=== PATIENT | female | born 1955 | race Caucasian/White ===

== ENCOUNTER → 2016-08-02 | Outpatient (CLI) | payer OTHER ==
[~2016-08-02] MED LIST: ALBUTEROL2.5 MG/31 INH; ANCEF, KEFZOL1 GM IV; ASPIRIN LO-DOSE81 MG PO; AUGMENTIN 500-1 EACH PO; BACTRIM DS1 TAB; CELEXA20 MG PO; COLACE100 MG PO; DESYREL100 MG PO; FISH OIL 1,0001 EAC1 PO; FLONASE 50 MCG/16 GM NOSE; GLUCOPHAGE500 MG PO; HUMALOG100 UNIT/3 SUB-Q; HUMULIN 70100 UNIT/M; INVOKANA100 MG; KEFLEX500 MG; KEFLEX500 MG PO; LEVAQUIN750 MG PO; LEVEMIR FL100 UNIT/1 SUB-Q; LOPID600 MG PO; LOPRESSOR25 MG PO; MIRALAX17 GM PO; NEURONTIN600 MG PO; NITROSTAT0.4 MG SL; NORCO 10-325 T1 EACH PO; NORVASC5 MG PO; PLAVIX75 MG; PROBENECID PO; SOMA350 MG PO; VASOTEC5 MG PO
[2016-08-02 16:16] LABS: CREATININE 0.8 mg/dL (0.5-1.1); ESTIMATED GFR (MDRD EQUATION) > 60
== END | disposition disaster alternative care site (69) ==
LOC: GLAB 15:17 → GRAD 16:00
PROVIDERS: Physician Assistant
DX: R06.02 Shortness of breath (principal); I25.10 Atherosclerotic heart disease of native coronary artery without angina pectoris; J47.9 Bronchiectasis, uncomplicated; R91.8 Other nonspecific abnormal finding of lung field; R06.00 Dyspnea, unspecified
CPT/HCPCS: Q9967

== ENCOUNTER 2016-08-26 12:07 | Emergency (ER) | payer OTHER ==
--- NOTE | ~2016-08-26 | ER ---
PATIENT'S NAME: VIRGINIA PEREZ [facility] AGE: 61 Y [address] ROOM: [place] [address] LOCATION: [facility] ADMIT DATE: 08/26/2016 ER/Outpatient Report DISCHARGE DATE: 08/26/2016 FAMILY PHYSICIAN: Juliet Beckman MD ATTENDING PHYSICIAN: Fer Castillo CHIEF COMPLAINT: Foot ulcer and fevers. HISTORY OF PRESENT ILLNESS: Ms. Perez has a history of diabetic foot ulcer. She has been following with Dr. Crespo, soil conservation teacher in [place]. On Friday, she had significant cellulitis. She was supposed to be scheduled to receive IV infusion therapy at the [facility] here with vancomycin twice daily. There were some issues between the patient and the [facility] that precluded that. She states she had a fever of 100.6 and 99.6 on Friday and Friday respectively, but has otherwise been doing okay. She denies any other major issues at this time. No other acute findings, and she states her foot ulcer is about the same. PAST MEDICAL HISTORY: Documented on the record and reviewed by me. SOCIAL HISTORY: Documented on the record and reviewed by me. ALLERGIES: DOCUMENTED ON THE RECORD AND REVIEWED BY ME. REVIEW OF SYSTEMS: All systems were reviewed and negative except as noted in the HPI. PHYSICAL EXAMINATION: VITAL SIGNS: Blood pressure 122/61, pulse 74, respiratory rate 16, temperature 96.9, SpO2 is 94% on room air. Pain is currently 0/10, max is 8/10. GENERAL: Age-appropriate female. No obvious pain or distress, sitting upright on exam table. HEENT: Normocephalic and atraumatic. Eyes are PERRL. Oropharynx clear. NECK: Supple. Trachea is midline. NEUROLOGIC: Awake and alert. GCS 15. No focal deficits. No obvious asymmetry. Diminished foot sensation. Otherwise normal exam neurologically. CHEST: Heart is regular rate and rhythm. No murmurs. LUNGS: Grossly clear to auscultation bilaterally. ABDOMEN: Soft and nontender. BACK: Back is normal to inspection and palpation. PATIENT'S NAME: VIRGINIA PEREZ [facility] AGE: 61 Y [address] ROOM: [place] [address] LOCATION: [facility] ADMIT DATE: 08/26/2016 ER/Outpatient Report DISCHARGE DATE: 08/26/2016 FAMILY PHYSICIAN: Juliet Beckman MD ATTENDING PHYSICIAN: Fer Castillo EXTREMITIES: Warm and well perfused. The left foot is notable for a bed blister, which appears to be well healing on the medial aspect of the first MTP. The plantar aspect reveals a 7-mm ulceration with surrounding induration but no cellulitis. The patient has full active and passive range of motion of the ankle at baseline. No exposed muscle or tendon appreciated. SKIN: Otherwise clean, dry, and intact. LABORATORY DATA AND X-RAYS: No imaging was obtained. Labs are as follows: Procalcitonin below threshold. CMS without electrolyte abnormality. Renal function: Creatinine 0.7. GFR is greater than 60. No LFT abnormalities. CRP 6.82. CBC: White count is 9.2, hemoglobin is 12.7, and platelets of 279. Lactate is 1.3. IMPRESSION: Diabetic foot ulcer with likely osteomyelitis. EMERGENCY DEPARTMENT COURSE: The patient seen evaluated as above. No evidence of systemic sepsis or cellulitis at this time. Per Dr. Crespo's recommendation, she was given a dose of vancomycin here. I discussed the case with Pharmacy, and they felt she would not receive adequate coverage with vancomycin unless she had twice daily treatments. This would be ideal; however, the patient is trying to leave this weekend and is not desiring to go to the Cancer [facility] twice a day as this would cause her what she perceives to be undue stress. Based on this situation, the patient was given orders for daptomycin to be administered once daily 650 mg until she can be seen by the [facility] on . My prescription will go through . This will require her to have a single IV each day. She needs to keep those followup appointments as it is imperative to prevent spreading of her infection. All questions were answered, and the patient was discharged in good condition after receiving vancomycin. MD ALLY MILES/ramonel /[id number] d: 08/27/16 0148 t: 05/24/17 1012, OUTPATIENT REPORT
[~2016-08-26 12:07] MED LIST changes: -ANCEF, KEFZOL1 GM IV; -AUGMENTIN 500-1 EACH PO; -BACTRIM DS1 TAB; -COLACE100 MG PO; -FISH OIL 1,0001 EAC1 PO; -GLUCOPHAGE500 MG PO; -HUMALOG100 UNIT/3 SUB-Q; -KEFLEX500 MG; -KEFLEX500 MG PO; -LEVEMIR FL100 UNIT/1 SUB-Q; -MIRALAX17 GM PO; -PROBENECID PO; -SOMA350 MG PO
[2016-08-26 13:20] LABS: BASOPHIL % 0.3 %; EOSINOPHIL # 0.2 K/uL (0.0-0.5); EOSINOPHIL % 2.5 %; HEMOGLOBIN 12.7 g/dL (10.0-15.0); IMMATURE GRANULOCYTE % 0.3 %; LYMPHOCYTE # 3.2 K/uL (0.8-4.0); LYMPHOCYTE % 34.6 %; MCH 32.1 pg (27.0-34.0); MCHC 34.3 gm/dL (32.0-36.5); MCV 93.4 fl (83.0-98.0); MONOCYTE # 0.9 K/uL (0.0-1.0); MONOCYTE % 9.2 %; MPV 10.4 fl (9.4-12.4); NEUTROPHIL # (ANC) 4.9 K/uL (1.8-7.8); NEUTROPHIL % 53.1 %; NRBC % 0 /100WBC (0-0.00); RBC 3.96 M/uL (3.50-5.50); RDW-CV 12.9 % (11.9-14.6); WBC 9.2 K/uL (4.0-11.0)
[2016-08-26 13:22] LABS: PLATELET COUNT 279 K/uL (150-450)
[2016-08-26 13:37] LABS: ALBUMIN 3.6 gm/dL (3.5-5.0); ALK PHOS 62 IU/L (33-138); ALT 40 IU/L (12-78); ANION GAP 12.7 (10.0-19.0); AST 25 IU/L (10-40); BLOOD UREA NITROGEN 12 mg/dL (6-24); CALCIUM 8.6 mg/dL (8.5-10.5); CHLORIDE 106 mMol/L (96-110); CO2 26 mMol/L (22-32); CREATININE 0.7 mg/dL (0.5-1.1); ESTIMATED GFR (MDRD EQUATION) > 60; POTASSIUM 3.7 mMol/L (3.7-5.1); SODIUM 141 mMol/L (135-145); TOTAL PROTEIN 6.8 g/dL (6.0-8.4)
[2016-08-26 13:38] LABS: TOTAL BILIRUBIN 0.3 mg/dL (0.0-1.5)
[2016-09-17] MEDS ORDERED: HUMALOG100 UNIT/3 SUB-Q (15:55)
[2016-09-17] MEDS ORDERED: FISH OIL 1,0001 EAC1 PO (15:56)
[2016-09-17] MEDS ORDERED: LEVEMIR FL100 UNIT/1 SUB-Q (15:57)
[2016-09-25] MEDS ORDERED: KEFLEX500 MG PO (15:14)
[2016-10-16] MEDS ORDERED: KEFLEX500 MG (14:49)
[2016-10-16] MEDS ORDERED: BACTRIM DS1 TAB (14:50)
[2016-12-10] MEDS ORDERED: KEFLEX500 MG PO (10:05)
== END 2016-08-26 16:16 | disposition disaster alternative care site (69) ==
LOC: GMED 12:07
PROVIDERS: Emergency Medicine
DX: E11.621 Type 2 diabetes mellitus with foot ulcer (principal); L97.529 Non-pressure chronic ulcer of other part of left foot with unspecified severity; I10 Essential (primary) hypertension; Z79.4 Long term (current) use of insulin; Z79.82 Long term (current) use of aspirin; Z79.899 Other long term (current) drug therapy; Z79.2 Long term (current) use of antibiotics
CPT/HCPCS: J3370; J7040

== ENCOUNTER → 2016-09-30 | Outpatient (CLI) | payer OTHER ==
[~2016-09-30] MED LIST changes: +ANCEF, KEFZOL1 GM IV; +AUGMENTIN 500-1 EACH PO; +BACTRIM DS1 TAB; +COLACE100 MG PO; +FISH OIL 1,0001 EAC1 PO; +GLUCOPHAGE500 MG PO; +HUMALOG100 UNIT/3 SUB-Q; +KEFLEX500 MG; +KEFLEX500 MG PO; +LEVEMIR FL100 UNIT/1 SUB-Q; +MIRALAX17 GM PO; +PROBENECID PO; +SOMA350 MG PO
== END | disposition disaster alternative care site (69) ==
LOC: GRAD 09-27 08:00
DX: E11.621 Type 2 diabetes mellitus with foot ulcer (principal); L97.929 Non-pressure chronic ulcer of unspecified part of left lower leg with unspecified severity; L03.116 Cellulitis of left lower limb
CPT/HCPCS: A9577

== ENCOUNTER 2016-10-12 06:19 | Emergency (ER) | payer OTHER ==
--- NOTE | ~2016-10-12 | ER ---
PATIENT'S NAME: VIRGINIA BRAXTON [facility] AGE: 61 Y [address] ROOM: [place] [address] LOCATION: ED ADMIT DATE: 10/12/2016 ER/Outpatient Report DISCHARGE DATE: 10/12/2016 FAMILY PHYSICIAN: Juliet Beckman MD ATTENDING PHYSICIAN: Jonathan Payton TIME OF ARRIVAL: 0619 hours. TIME OF EVALUATION: 0622 hours. CHIEF COMPLAINT: Left foot ulcer. HISTORY OF PRESENT ILLNESS: The patient is a 61-year-old female, who presents to the emergency department today with a chief complaint of left foot pain and ulcer. She reports she has had it for about 2 years. She reports that the pain has gotten worse since last night. She reports she has had fevers in the night, that goes back to normal in the morning. She reports the pain is currently 9/10 in severity. She normally takes hydrocodone, but she did not take any this time. She denies any nausea or vomiting. No diarrhea or constipation. It is a sharp pain. It is worse with walking. The patient reports she has an appointment to see Wound Care on Friday at 2:00 p.m. on the . She also has an appointment to see Infectious Disease on the . The patient does have chronic osteomyelitis. PAST MEDICAL HISTORY: Hypertension, insulin-dependent diabetes, coronary artery disease, peripheral vascular disease, dyslipidemia, depression, and diabetic foot ulcer. PAST SURGICAL HISTORY: Cholecystectomy, left shoulder surgery, left bunionectomy, right hand surgery, and cardiac cath with PTCA and stenting. SOCIAL HISTORY: The patient denies any tobacco, alcohol, or illicit drug use. ALLERGIES: TO LISINOPRIL, LOVENOX, AND MINOCYCLINE. MEDICATIONS: Please see list. PATIENT'S NAME: VIRGINIA BRAXTON [facility] AGE: 61 Y [address] ROOM: [place] [address] LOCATION: ED ADMIT DATE: 10/12/2016 ER/Outpatient Report DISCHARGE DATE: 10/12/2016 FAMILY PHYSICIAN: Juliet Beckman MD ATTENDING PHYSICIAN: Jonathan Payton REVIEW OF SYSTEMS: All systems are reviewed by myself and are negative with the exception of those discussed in the HPI and past medical history. PHYSICAL EXAMINATION: VITAL SIGNS: Weight 106.2 kg. Blood pressure 208/79, pulse 76, respiratory rate 16, temperature 97.3, and oxygen saturation 96% on room air. GENERAL: The patient is a 61-year-old female, who appears her stated age, in mild acute distress when she walks. HEENT: Normocephalic and atraumatic. Pupils are equal, round, and reactive to light. Mucous membranes are moist. NECK: Supple. There is no nuchal rigidity. CARDIOVASCULAR: Regular rate and rhythm. No murmurs, rubs, or gallops. LUNGS: Clear to auscultation bilaterally. No wheezes, rales, or rhonchi. ABDOMEN: Soft, nontender, and nondistended. No rebound, rigidity, or guarding. MUSCULOSKELETAL: The patient moves all 4 extremities. SKIN: Warm and dry. The patient does have an ulcer at the plantar aspect of the first metatarsal on the left foot. There is no crepitus palpated. LABORATORY DATA AND X-RAYS: CBC is normal. CMP is normal. LFTs are normal. Cardiac enzymes are normal. ProBNP is normal. Lactate is normal. Coags are normal. Procalcitonin is less than 0.05. CRP is 5.24. ESR is 42. IMPRESSION: 1. Chronic diabetic foot ulcer, left foot. 2. Initial visit. EMERGENCY DEPARTMENT COURSE: The patient brought back to the examination room. Seen and evaluated by myself. IV is established. Laboratory analysis and imaging are obtained as described above. I have discussed the results with the patient. She is given 5 mg of morphine x2, with significant improvement of the patient's symptoms. We have given the patient Zosyn IV. The patient is requesting to go home at this time and would like to follow up as an outpatient for her wound care in [place]. I have added Bactrim and she is to continue the Keflex. I have written a prescription for [place] for severe pain, dispensing #12. I discussed return to care instructions including high fevers, chills, or any other concerns to return to the emergency department as soon as possible. The patient is agreeable without further questions at the time of disposition. The patient is discharged home in good condition. PATIENT'S NAME: VIRGINIA BRAXTON [facility] AGE: 61 Y [address] ROOM: [place], [place] [address] LOCATION: [facility] ADMIT DATE: 10/12/2016 ER/Outpatient Report DISCHARGE DATE: 10/12/2016 FAMILY PHYSICIAN: Juliet Beckman MD ATTENDING PHYSICIAN: Jonathan Payton DO RILEY DAY/ramonel /[id number] d: 10/12/16 1229 t: 10/16/16 0640, OUTPATIENT REPORT
[~2016-10-12 06:19] MED LIST changes: -ANCEF, KEFZOL1 GM IV; -AUGMENTIN 500-1 EACH PO; -BACTRIM DS1 TAB; -COLACE100 MG PO; -GLUCOPHAGE500 MG PO; -KEFLEX500 MG; -MIRALAX17 GM PO; -PROBENECID PO; -SOMA350 MG PO
[2016-10-12 06:56] LABS: BASOPHIL # 0.1 K/uL (0.0-0.2); BASOPHIL % 0.5 %; EOSINOPHIL # 0.2 K/uL (0.0-0.5); EOSINOPHIL % 1.9 %; HEMATOCRIT 39.3 % (33.0-46.0); HEMOGLOBIN 13.7 g/dL (10.0-15.0); IMMATURE GRANULOCYTE % 0.3 %; LYMPHOCYTE # 4.1 K/uL (0.8-4.0); LYMPHOCYTE % 42.2 %; MCH 32.9 pg (27.0-34.0); MCHC 34.9 gm/dL (32.0-36.5); MCV 94.2 fl (83.0-98.0); MONOCYTE # 0.9 K/uL (0.0-1.0); MONOCYTE % 9.7 %; MPV 10.4 fl (9.4-12.4); NEUTROPHIL # (ANC) 4.4 K/uL (1.8-7.8); NEUTROPHIL % 45.4 %; NRBC % 0 /100WBC (0-0.00); PLATELET COUNT 284 K/uL (150-450); RBC 4.17 M/uL (3.50-5.50); RDW-CV 12.6 % (11.9-14.6); WBC 9.7 K/uL (4.0-11.0)
[2016-10-12 07:03] LABS: INR - (THERAPEUTIC) 0.95 (0.92-1.07); PTT 24 SECONDS (25-32)
[2016-10-12 07:23] LABS: ALBUMIN 3.8 gm/dL (3.5-5.0); ALK PHOS 67 IU/L (33-138); ALT 29 IU/L (12-78); ANION GAP 11.8 (10.0-19.0); AST 25 IU/L (10-40); BLOOD UREA NITROGEN 16 mg/dL (6-24); CHLORIDE 103 mMol/L (96-110); CO2 25 mMol/L (22-32); CPK 141 IU/L (21-215); CREATININE 0.7 mg/dL (0.5-1.1); ESTIMATED GFR (MDRD EQUATION) > 60; POTASSIUM 3.8 mMol/L (3.7-5.1); SODIUM 136 mMol/L (135-145); TOTAL PROTEIN 8.1 g/dL (6.0-8.4)
[2016-10-12 07:27] LABS: TOTAL BILIRUBIN 0.4 mg/dL (0.0-1.5)
[2016-10-16] MEDS ORDERED: KEFLEX500 MG (14:49)
[2016-10-16] MEDS ORDERED: BACTRIM DS1 TAB (14:50)
[2016-12-10] MEDS ORDERED: KEFLEX500 MG PO (10:05)
== END 2016-10-12 09:00 | disposition disaster alternative care site (69) ==
LOC: GMED 06:19
PROVIDERS: Emergency Medicine
DX: E11.621 Type 2 diabetes mellitus with foot ulcer (principal); L97.529 Non-pressure chronic ulcer of other part of left foot with unspecified severity; I10 Essential (primary) hypertension; I25.10 Atherosclerotic heart disease of native coronary artery without angina pectoris; I73.9 Peripheral vascular disease, unspecified; E78.5 Hyperlipidemia, unspecified; F32.9 Major depressive disorder, single episode, unspecified; Z90.49 Acquired absence of other specified parts of digestive tract; Z98.890 Other specified postprocedural states; Z95.818 Presence of other cardiac implants and grafts; Z98.61 Coronary angioplasty status; Z88.1 Allergy status to other antibiotic agents; Z88.8 Allergy status to other drugs, medicaments and biological substances; Z79.84 Long term (current) use of oral hypoglycemic drugs
CPT/HCPCS: J2001; J2270; J2543; J7030

== ENCOUNTER 2016-10-21 17:00 | Inpatient (IN) | payer OTHER ==
[~2016-10-21] VITALS: Ht 162.6 cm; Wt 103.9 kg
--- NOTE | ~2016-10-21 | CON ---
PATIENT'S NAME: VIRGINIA BRAXTON [facility] AGE: 61 Y [address] ROOM: [id number] [place], [place] [address] LOCATION: [facility] ADMIT DATE: 10/21/2016 Consultation DISCHARGE DATE: FAMILY PHYSICIAN: Juliet Beckman MD ATTENDING PHYSICIAN: JOAN KNOWLES REFERRING PHYSICIAN: Jose E Preston MD REQUESTING PHYSICIAN: Joan Knowles M.D. REASON FOR CONSULTATION: Clearance for surgery. HISTORY OF PRESENT ILLNESS: The patient is a 61-year-old diabetic woman with osteomyelitis, who is now admitted after failing antibiotic therapy and the plan is to have amputation of the left great toe and the first metatarsal. Her cardiac history includes stenting of the right coronary artery per her own recollection, three stents in 2008 and two in 2009 when she was in [place], it was done in the [facility]. After she moved to [place], she had coronary angiogram in 2013 because of mildly abnormal nuclear stress test and the study showed that the stents were patent without significant restenosis and there was no significant progression in the other vessels. The patient denies exertional dyspnea or episodes of chest pain. She is not very ambulatory because of her foot problems. She does not report any episodes of chills or fevers. Remaining systems were checked and it was negative. MEDICATIONS: The patient's medications include: 1. Enalapril 5 mg daily. 2. Metoprolol tartrate 25 mg twice a day. 3. Amlodipine 5 mg daily. 4. Aspirin 81 mg daily. 5. Gemfibrozil 600 mg twice a day. 6. Gabapentin 600 mg at bedtime. 7. Trazodone 100 mg at bedtime. 8. Citalopram 20 mg daily. 9. Fluticasone 2 sprays p.r.n. 10. Hydrocodone and acetaminophen q.6 hours for pain. 11. Albuterol inhaler p.r.n. 12. Nitroglycerin p.r.n. 13. Insulin lispro 15 units before meals. 14. Insulin detemir 75 units at bedtime. 15. [place]-3 fatty acid twice a day 1000 mg. 16. Amoxicillin and clavulanic acid 500/125 three times a day. 17. Probenecid 500 mg 3 times a day. PATIENT'S NAME: VIRGINIA BRAXTON [facility] AGE: 61 Y [address] ROOM: [place] [address] LOCATION: [facility] ADMIT DATE: 10/21/2016 Consultation DISCHARGE DATE: FAMILY PHYSICIAN: Juliet Beckman MD ATTENDING PHYSICIAN: JOAN KNOWLES 18. Metformin 500 mg daily. 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 She is in a long-term relationship. Has no children. Used to smoke, quit in 2005. Has been abstaining from alcohol for 19 years. FAMILY HISTORY: Her father was diabetic, from sepsis in his 60s. Her mother at 79, is reported alive and well. PAST SURGICAL HISTORY: Laparoscopic cholecystectomy, left foot bunionectomy, left shoulder surgery, and trigger finger release of the right hand. PHYSICAL EXAMINATION: GENERAL: The patient is a middle-aged woman. She was examined in bed. She is alert and oriented. VITAL SIGNS: 5 feet and 4 inches tall, 104 kg, blood pressure 149/70, and pulse 64. SKIN: Warm and dry with several tattoos. NECK: Supple. There are mild carotid bruits. No jugular venous distention. HEART: Regular with fourth heart sound. 1/6 systolic ejection murmur. CHEST: Lungs are clear to auscultation. ABDOMEN: Very obese without masses. EXTREMITIES: Lower extremities have notable edema. There is a dressing on the left foot. There are 2+ dorsalis pedis pulses. DIAGNOSTIC STUDIES: On October 12, cardiac enzymes and proBNP were drawn, all in the normal range. Her last A1c is 8.3. Her renal function is normal. Electrocardiogram shows sinus rhythm without significant changes. IMPRESSION: We will await the echocardiogram, but anticipate that she will be a reasonable candidate for the surgical operation, which is not high risk anyway. Thank you for allowing me to participate in the care of this lady. JOSE E PRESTON MD PE/modl PATIENT'S NAME: VIRGINIA BRAXTON [facility] AGE: 61 Y [address] ROOM: [address] [place], [place] [address] LOCATION: [facility] ADMIT DATE: 10/21/2016 Consultation DISCHARGE DATE: FAMILY PHYSICIAN: Juliet Beckman MD ATTENDING PHYSICIAN: JOAN KNOWLES /[id number] d: 10/23/16 1803 t: 10/27/16 1143, CONSULTATION REPORT
--- NOTE | ~2016-10-21 | CON ---
PATIENT'S NAME: VIRGINIA BRAXTON [facility] AGE: 61 Y [address] ROOM: [place] [address] LOCATION: [facility] ADMIT DATE: 10/21/2016 Consultation DISCHARGE DATE: FAMILY PHYSICIAN: Juliet Beckman MD ATTENDING PHYSICIAN: JOAN KNOWLES REFERRING PHYSICIAN: Denisha Vieyra MD CHIEF COMPLAINT: Left first toe pain. REASON FOR CONSULTATION: Diabetes type 2 management. HISTORY OF PRESENT ILLNESS: This is a 61-year-old female, who has a long history of few years of left big toe osteomyelitis on and off, treated with several antibiotics and several other regimen in the past without much success. The patient is admitted today for elective amputation of the left big toe for Friday on October 23, 2016. The patient denies any chest pain or shortness of breath or chills or any other symptoms. We have been consulted for diabetes type 2 management. REVIEW OF SYSTEMS: As mentioned in the history of present illness. All other systems were reviewed and they were negative except for those mentioned in the history of present illness. PAST MEDICAL HISTORY: 1. Coronary artery disease, status post multiple stents in the past several years ago. 2. Diabetes type 2. 3. Hypertension. 4. Hyperlipidemia. 5. Depression. ALLERGIES: LISINOPRIL, LOVENOX, AND MINOCYCLINE. HOME MEDICATIONS: Currently is being reconciled. SOCIAL HISTORY: The patient was a former cigarette smoker, she quit many years ago back in 2005. The patient was a former drinker, she quit many years ago back in 1997. She denies any illegal drug use. PATIENT'S NAME: VIRGINIA BRAXTON [facility] AGE: 61 Y [address] ROOM: [address] [address] LOCATION: [facility] ADMIT DATE: 10/21/2016 Consultation DISCHARGE DATE: FAMILY PHYSICIAN: Juliet Beckman MD ATTENDING PHYSICIAN: JOAN KNOWLES FAMILY HISTORY: Father from old age from sepsis from unclear source. Mother is healthy and alive. PAST SURGICAL HISTORY: 1. Left foot bunionectomy x2 in the past. 2. Laparoscopic cholecystectomy. 3. Left shoulder surgery. 4. Trigger finger surgery on the right ring finger. 5. Cardiac stents in the past. PHYSICAL EXAMINATION: VITAL SIGNS: At the time of dictation, blood pressure 123/60, temperature 98, heart rate 76, respirations 16, and saturations 94% on room air. GENERAL APPEARANCE: Alert and oriented x3. In no acute distress. HEENT: Pupils are equally round and reactive to light. Extraocular muscles intact. Anicteric sclerae. Nasal turbinates are normal bilaterally. Moist oral mucosa. NECK: No JVD. CARDIOVASCULAR: Regular rate and rhythm. Normal S1, S2. No murmurs, no rubs, no gallops. RESPIRATORY: Clear to auscultation. No rales, no rhonchi, no wheezing, no crackles. ABDOMEN: Obese, soft, nontender, nondistended, bowel sounds present, and no mass. EXTREMITIES: No edema in the upper or lower extremities. SKIN: Her left foot in the plantar surface is covered by a bandage. Some swelling and erythema and tenderness to palpation in the plantar and also in the dorsal surface of the first big toe on the left foot. NEUROLOGIC: Grossly nonfocal. Some decreased sensation in bilateral lower extremities from her longstanding diabetes from the peripheral neuropathy. LABORATORY DATA: CBC: White blood cells 11, hemoglobin 14.3, hematocrit 41.5, platelets 335. Glucose 96, BUN 12, creatinine 0.8, sodium 139, potassium 4.1, chloride 105, CO2 of 26, calcium 9.2. Liver function testing: Total protein 7.9, albumin 3.9, AST 19, ALT 28, alkaline phosphatase 66, total bilirubin 0.3. Anion gap 12.1. Globulin 4. GFR more than 60. INR 0.97, PTT 24. IMAGING STUDY: X-ray of the left foot and left ankle, the official report is pending, please follow up in the morning. ASSESSMENT AND PLAN: 1. Regarding her diabetes type 2 management: I will check the A1c. I will PATIENT'S NAME: VIRGINIA BRAXTON [facility] AGE: 61 Y [address] ROOM: [id number] [place], [place] [address] LOCATION: [facility] ADMIT DATE: 10/21/2016 Consultation DISCHARGE DATE: FAMILY PHYSICIAN: Juliet Beckman MD ATTENDING PHYSICIAN: JOAN KNOWLES cut down her home dose insulin by half. Given that she is in the hospital, the diet is different, we can always titrate to give more if necessary. She does take insulin mix 75/25, 15 units subcu 3 times a day and also insulin Levemir 75 units every night at bedtime. I will cut down the Levemir by half, I will cut down to 35 units every night, and also for the insulin mix, I will use the insulin aspart, I will cut down by half from 15 to 7 units 3 times a day and also add on a sliding scale for her as well. Can titrate if necessary. By the time I was informed for the consult, the patient had already got 75 units of Levemir subcu and also 15 units of insulin aspart, even when her sugar was around 105. This was given before I was notified to see the consult. For this reason, I will be checking her fingerstick glucose at 2:00 a.m. and 4:00 a.m. to make sure she is not hypoglycemic and then can resume the regular a.c. schedule starting at 7:00 a.m. Can continue diabetic diet for now. 2. Regarding her coronary artery disease, status post cardiac stents in the past: Cardiology consult has been placed by Orthopedic Surgery team for preoperative evaluation in the morning. I will defer the care to Cardiology. I will hold her aspirin given that her cardiac stent was placed many years ago and in anticipation for the amputation this Friday. Further care per Cardiology. 3. Regarding her hypertension: Continue home medications with holding parameter. At home, she is taking enalapril and Lopressor. She is also taking amlodipine; I will continue that as well with holding parameter. 4. Regarding her hyperlipidemia: Continue her home medication, which includes gemfibrozil. 5. Regarding her depression: Continue Celexa. 6. Regarding her deep vein thrombosis prophylaxis: Continue subcu heparin, but hold the evening dose the night prior to the amputation. 7. She is a full code. Time spent in care on the day of consultation 35 minutes where 20 minutes were spent on counseling including going over the plan of care and also addressing the patient's questions and concerns to her satisfaction. The remainder of the time was spent on chart review and interview and also on the physical examination. Further plan will depend on clinical course. MD MARCUS TINSLEY/gera /[id number] d: 10/22/16 0407 t: 10/22/16804, CONSULTATION REPORT
--- NOTE | ~2016-10-21 | OR ---
PATIENT'S NAME: VIRGINIA PEREZ [facility] AGE: 61 Y [address] ROOM: [facility] [place] [address] LOCATION: [facility] ADMIT DATE: 10/21/2016 OR/Procedure Report DISCHARGE DATE: 10/25/2016 FAMILY PHYSICIAN: Juliet Beckman MD ATTENDING PHYSICIAN: Joan Knowles SURGEON: Joan Knowles MD FUNERAL DRIVER: Levy Lawrence PA-C DATE OF PROCEDURE: 10/23/[address] KNOWLES / 11-15-2016 / VITO PATIENT IDENTIFICATION: The patient is a 61-year-old female. PREOPERATIVE DIAGNOSES: 1. Left gastrocnemius equinus/shortened Achilles tendon. 2. Multifocal osteomyelitis of the left proximal phalanx of the great toe and first metatarsal head. 3. Stage IV diabetic pressure ulcer at the plantar medial surface of the first metatarsophalangeal joint and gangrene of the great toe. POSTOPERATIVE DIAGNOSES: 1. Left gastrocnemius equinus/shortened Achilles tendon. 2. Multifocal osteomyelitis of the left proximal phalanx of the great toe and first metatarsal head. 3. Stage IV diabetic pressure ulcer at the plantar medial surface of the first metatarsophalangeal joint and gangrene of the great toe. PROCEDURE PERFORMED: 1. Left gastrocnemius recession. 2. Left second toe amputation at metatarsophalangeal joint. 3. Removal and amputation of first metatarsal bone. 4. Irrigation and debridement of left forefoot wound including skin, subcutaneous tissue, muscle, fascia, and bone. The dimensions were 10 cm in length x 5 cm in depth x 2 cm in width. 5. Debridement of stage IV diabetic pressure ulcer at the plantar medial surface of the first metatarsal head, measuring 4 cm in length, 4 cm in width, 1 cm in depth. Debridement included skin, subcutaneous tissue, fascia, and bone. 6. Use of intraoperative fluoroscopy, less than 1 hour. SURGEON: Joan Knowles MD ANESTHESIA: General endotracheal anesthesia. FLUIDS: See Anesthesia report. ESTIMATED BLOOD LOSS: Minimal. PATIENT'S NAME: VIRGINIA PEREZ [facility] AGE: 61 Y [address] ROOM: [address] [address] LOCATION: [facility] ADMIT DATE: 10/21/2016 OR/Procedure Report DISCHARGE DATE: 10/25/2016 FAMILY PHYSICIAN: Juliet Beckman MD ATTENDING PHYSICIAN: Joan Knowles TOURNIQUET: Left proximal thigh at 250 mmHg. SPECIMEN: 1. Left great toe amputation and first metatarsal bone. 2. Wound cultures of the left foot. COMPLICATIONS: None. DISPOSITION: Stable in PACU. COUNTS: All counts correct. INDICATIONS: Ms. Perez is a 61-year-old female, who underwent the noted procedures above. The risks, benefits, and alternatives pursuing surgical intervention were discussed with the patient in detail. She elected to proceed with surgery. I marked the patient's left lower extremity indicating the correct surgical site. Anesthesia was consulted for their perioperative evaluation. DESCRIPTION OF PROCEDURE: The patient was brought from the holding area to the operating room. A time-out was performed. General endotracheal anesthesia was administered. Intraoperative antibiotics were held for cultures. The left lower extremity was then prepped and draped in sterile fashion. I turned my attention to the left foot. An Esmarch was used to exsanguinate the limb and the tourniquet was inflated to 250 mmHg. I turned my attention to the medial aspect of the leg. Using a #15 blade knife, I made a skin incision through skin, subcutaneous tissue, muscle fascia, down to the gastrocnemius aponeurosis. I performed a gastrocnemius recession procedure. My PA, hyperdorsiflexed the ankle and we achieved good excursion from the gastrocnemius recession procedure. We then irrigated it and closed in layers. The skin was approximated with kinsey. I then turned my attention to the foot. The great toe had a draining, stage IV diabetic pressure sore on the plantar medial surface of the great toe. There are erythema, warmth, and gangrene. Using a #15 blade knife, I amputated the great toe at the first metatarsophalangeal joint. The great toe was sent for specimen. I then turned my attention more proximally, the first metatarsal had osteomyelitis in it. Using an oscillating saw, I excised the first metatarsal bone and send it for specimen. I used a series of rongeurs and curettes to debride the wound from the inside. The wound was copiously irrigated with normal sterile saline solution via pulsatile lavage. PATIENT'S NAME: VIRGINIA PEREZ [facility] AGE: 61 Y [address] ROOM: [address] [place], [place] [address] LOCATION: [facility]N ADMIT DATE: 10/21/2016 OR/Procedure Report DISCHARGE DATE: 10/25/2016 FAMILY PHYSICIAN: Juliet Beckman MD ATTENDING PHYSICIAN: Joan Knowles I then turned my attention to the plantar medial surface of the foot where the first metatarsal head resided. There was stage IV diabetic ulcer. Using a #15 blade knife, I debrided down to a stable base. I did a primary closure of the amputation site using 2-0 nylon suture in an interrupted horizontal mattress fashion in order to approximate the flap. There was no undue tension across the flap. Intraoperative fluoroscopy was taken indicating the prior to our amputation and subsequent successful amputation of the great toe and first metatarsal. These images were saved and sent to PACS. Sterile dressings were placed in the form of Xeroform, followed by 4x4, Webril, and Preston bandage. The tourniquet was let down. The rest of the toes reperfused. The patient was then transferred from the operating table onto the stretcher and extubated. She was brought to the recovery room in stable condition. There were no intraoperative complications noted. Of note, my PA, Levy Lawrence PA-C, played an integral role in the intraoperative care of this patient. This included preoperative positioning, intraoperative expert retraction, and closing and dressing functions. IMPRESSION: The patient is status post the noted procedures above. PLAN: The patient will be nonweightbearing on the left lower extremity, a soft dressing, and a postop shoe. She will be encouraged to rest, ice, and elevate the leg going forward. Ancef antibiotics were started intraoperatively after cultures were obtained and specimen samples were sent. After speaking to Dr. Gerber, her Infectious Disease doctor, he reports that the wound cultures showed methicillin-sensitive Staphylococcus aureus. We will therefore treat her for that empirically. We will follow up the results of the intraoperative cultures and change antibiotics as needed. We will consult Infectious Disease for management of her long-term management. She will likely require a PICC line. I have asked Physical Therapy and Occupational Therapy to see the patient postoperatively for early ambulation and prevention of deconditioning. DVT prophylaxis will be in the form of Lovenox or aspirin. The hospitalist will continue to manage the patient's concomitant medical comorbidities going forward. I will continue to follow this patient closely in the postoperative period. PATIENT'S NAME: VIRGINIA PEREZ [facility] AGE: 61 Y [address] ROOM: [place] [address] LOCATION: [facility] ADMIT DATE: 10/21/2016 OR/Procedure Report DISCHARGE DATE: 10/25/2016 FAMILY PHYSICIAN: Juliet Beckman MD ATTENDING PHYSICIAN: Joan Knowles JOAN KNOWLES MD RCD/modl /[id number] CORRECTED PER DR. KNOWLES / 11-15-2016 / KLD d: 10/23/16 2325 t: 11/15/16 1041, OPERATIVE SUMMARY
--- NOTE | ~2016-10-21 | DS ---
PATIENT'S NAME: VIRGINIA BRAXTON [facility] AGE: 61 Y [address] ROOM: [address] [place], [place] [address] LOCATION: [facility] ADMIT DATE: 10/21/2016 Discharge Summary DISCHARGE DATE: 10/25/2016 FAMILY PHYSICIAN: Juliet Beckman MD ATTENDING PHYSICIAN: Derek Montelongo ADMITTING DIAGNOSIS: Left stage IV pressure ulcer at the plantar surface of the first metatarsal head of great toe with evidence of osteomyelitis by MRI. DISCHARGE DIAGNOSIS: Left stage IV pressure ulcer at the plantar surface of the first metatarsal head of the great toe with evidence of osteomyelitis by MRI. SECONDARY DIAGNOSES: 1. Coronary artery disease. 2. Depression. 3. Diabetes mellitus type 2. 4. Hypertension. CONSULTATIONS: Consultations were to the patient's primary care provider Dr. Beckman for medical management, to the Hospitalist Service for medical management, and to the patient's glove former Dr. Vieyra with [facility]. PROCEDURE: The patient underwent the following procedure by Dr. Montelongo on October 23, 2016: 1. Left gastrocnemius recession. 2. Left great toe amputation at the metatarsophalangeal joint. 3. Excision of 1st metatarsal bone. 4. Irrigation and debridement of left forefoot wound including skin, subcutaneous tissue, muscle, fascia, and bone. The dimensions were 10 cm in length x 5 cm in depth x 2 cm in width. 5. Debridement of stage IV diabetic pressure wound at the plantar medial surface of the foot. Right PICC line placed on 10/24/2014. HISTORY OF PRESENT ILLNESS: The patient is a 61-year-old female who was seen by Dr. Montelongo in the office for evaluation of her left foot. The patient had an ulcer of her plantar surface and 1st metatarsal head that had been persistent. She has been seen and evaluated her PCP, wound care clinic and by infectious disease clinic. She had an MRI was performed that showed what was concerning for osteomyelitis and focal collection. The patient has had fevers, chills, as a result. The patient reports pain at any given time of 5/10 or 6/10, that can spike to 9/10. Aggravating factors include standing, walking, participating in activities of daily living. Alleviating factors include rest, ice, and elevation. She denies any previous trauma. She has had a bunionectomy performed in the past. She is a diabetic PATIENT'S NAME: VIRGINIA BRAXTON [facility] AGE: 61 Y [address] ROOM: [address] [place], [place] [address] LOCATION: [facility] ADMIT DATE: 10/21/2016 Discharge Summary DISCHARGE DATE: 10/25/2016 FAMILY PHYSICIAN: Juliet Beckman MD ATTENDING PHYSICIAN: Derek Montelongo with diabetic peripheral neuropathy. The patient has had both oral and IV antibiotics in the past and has been seen [facility]. The patient when seen denied any symptoms such as dizziness, chest pain, shortness of breath, blurred vision, nausea, vomiting, or diarrhea. After the patient was seen in the office, it was determined that the patient would benefit from surgical amputation of the left great toe and transmetatarsal amputation of the 1st metatarsal bone. HOSPITAL COURSE: The patient was admitted from the office to expedite preoperative clearance. The patient's primary care provider's office was consulted initially for preoperative clearance and medical management. During her admission, the Hospitalist Service was asked to assume the medical management and then assume the care during her admission. The patient's glove former Dr. Vieyra did see the patient inpatient and cleared her medically for surgery. The patient did undergo the above-described procedure on October 23, 2016. Postoperatively, the patient was placed on IV Ancef and made nonweightbearing of the left lower extremity. She did work with physical therapy postoperatively for transfer training. On postoperative day 1 the patient did became insistent that she was going home that night and did say that she would even leave AMA. The patient was counseled that arrangements were being made for discharge that may not be ready until the next day and that leaving prematurely would not be recommended. Arrangements were made to have the patient get a PICC line postoperative day #1. The patient did receive a right PICC line, on October 24. Care management did arrange for the patient to get home infusion setup per recommendations of Infectious Disease. Infectious Disease had been consulted via the phone since they were not available to be evaluate the patient during her admission. The patient ultimately did spend the night and received her schedule IV antibiotics. All arrangements were ready for the patient to be discharged on October 25 and the patient was determined to be stable for discharge at that time and was discharged home. DISCHARGE MEDICATIONS: Stopped medications: 1. Callahan. 2. Cephalexin. 3. Bactrim. 4. Augmentin. New medications: 1. Ancef IV 1 g IV q.8 h. by 6 weeks. 2. Colace 100 mg p.o. b.i.d. 3. MiraLAX 17 g p.o. daily as needed for constipation. 4. Soma 350 mg 1 tab every 6 hours as needed for muscle spasms. 5. Callahan 10/325 1 tab every 4 hours as needed for pain. PATIENT'S NAME: VIRGINIA BRAXTON [facility] AGE: 61 Y [address] ROOM: [place] [address] LOCATION: [facility] ADMIT DATE: 10/21/2016 Discharge Summary DISCHARGE DATE: 10/25/2016 FAMILY PHYSICIAN: Juliet Beckman MD ATTENDING PHYSICIAN: Derek Montelongo The patient was instructed to otherwise continue her preadmission medications as instructed by her Internal Medicine doctor. DISCHARGE INSTRUCTIONS: The patient is to follow a diabetic diet. She is to be nonweightbearing of her left lower extremity in a postop shoe with transferring. Home Health was setup for the patient to receive dressing changes. FOLLOW UP: The patient is to follow up with Dr. Montelongo on October 25 at 9:50 a.m. She is to follow up with Infectious Disease Clinic on November 27 at 3 p.m. The patient is to follow up with Dr. Arauz on Friday November 04, 2016 at 9 a.m. The patient's discharge status is good. MEGAN ESCAMILLA PA-C FOR MD ANDRE TARIQ/gera /[id number] d: 10/31/16 0453 t: 11/17/16 1619, DISCHARGE SUMMARY
--- NOTE | ~2016-10-21 | ECHO ---
Transthoracic Echocardiography Report (TTE) Demographics Patient Name VIRGINIA BRAXTON Date of Study 10/22/2016 Patient Number [id number] Visit Number [id number] Date of 1955 Room Number G3254 Gender Female Number Age 61 year(s) Referring Rk Wilson MD Flight Data Technician Barry Baltazar RVT, Physician RDCS Physician Interpreting Azalia Craig Database Administration Associate Physician A Supervising Ordering Narciso Marks Md, MD/MLP Physician Nurse Stress Assistant Public Defender Conclusions Contractility Score Summary Normal Left Ventricular contractility was noted. Summary The estimated left ventricular ejection fraction is 60-65%. Mild concentric left ventricular hypertrophy. Diastolic assessment reveals Grade I diastolic dysfunction. No significant valvular abnormalities. The ascending aorta appears mildly dilated. The maximum diameter measures 3.4 cm. Procedure Type of Study TTE procedure:2D Echocardiogram. Procedure Date Date: 10/22/2016 Start: 07:18 AM Study Location: Inpatient Portable Technical Quality: Adequate visualization Indications:Pre surgical clearance. Appropriate Use Criteria: 8 Patient Status: Routine Rhythm: NSR HR: 69 bpm BP: 131/69 mmHg M-Mode/2D Measurements LV Diastolic Dimension: 3.98 cm LV Systolic Dimension: 2.17 cm LV Septum Diastolic: 1.61 cm LV PW Diastolic: 1.11 cm AO Root Dimension: 2.3 cm Cardiac Output: 3.66 l/min AV Cusp Separation: 1.7 cm RV Diastolic Dimension: 2.53 cm LA volume: 56 ml LVOT: 1.7 cm RV Base: 2.99 cm LVOT VTI: 23.4 cm RV Mid: 2.24 cm LV Stroke volume: 53.09 ml TAPSE: 2.47 cm TDI-S': 8.44 cm/s Doppler Measurements AV Peak Velocity: 1.31 m/s MV Peak E-Wave: 0.53 m/s AV Peak Gradient: 6.86 mmHg MV Peak A-Wave: 0.66 m/s AV Mean Gradient: 4 mmHg MV E/A Ratio: 0.8 LVOT Peak Velocity: 0.9 m/s MV P1/2t: 85 msec TR Gradient:16.32 mmHg PV Peak Velocity: 0.77 m/s Estimated RAP:5 mmHg PV Peak Gradient: 2.38 mmHg Estimated RVSP: 21 mmHg Estimated PASP: 21.32 mmHg E' Septal Velocity: 0.05 m/s A' Septal Velocity: 0.1 m/s E' Lateral Velocity: 0.08 m/s A' Lateral Velocity: 0.1 m/s Findings Left Ventricle Mild concentric left ventricular hypertrophy. Diastolic assessment reveals Grade I diastolic dysfunction. Right Ventricle Normal right ventricle structure and function. Left Atrium Normal left atrial size. There is no evidence of patent foramen ovale or atrial septal defect by color Doppler. Right Atrium Upper normal right atrial size. Mitral Valve Normal mitral valve structure and function. Aortic Valve Normal aortic valve structure and function. Tricuspid Valve Normal tricuspid valve structure and function. Trivial tricuspid regurgitation by color Doppler. Pulmonic Valve Normal pulmonic valve structure and function. Pericardial Effusion No evidence of pericardial effusion. Miscellaneous The ascending aorta appears mildly dilated. The maximum diameter measures 3.4 cm. Suboptimal subcostal window to evaluate the IVC and interatrial septum. IVC is mildly dilated. Pleural Effusion No evidence of pleural effusion. Contractility Score LV regional wall motion:(0-Non visualized 1-Normal 2-Hypokinesis 3-Akinesis 4-Dyskinesis 5-Aneurysm) Signature dtt: Denisha Vieyra dtd: 10/22/16 0718 Physician Self Edit
[~2016-10-21 17:00] MED LIST changes: +BACTRIM DS1 TAB; +KEFLEX500 MG
[2016-10-21 18:41] LABS: BASOPHIL % 0.4 %; EOSINOPHIL # 0.2 K/uL (0.0-0.5); EOSINOPHIL % 1.5 %; HEMATOCRIT 41.5 % (33.0-46.0); HEMOGLOBIN 14.3 g/dL (10.0-15.0); IMMATURE GRANULOCYTE % 0.3 %; LYMPHOCYTE # 3.5 K/uL (0.8-4.0); LYMPHOCYTE % 31.7 %; MCH 32.9 pg (27.0-34.0); MCHC 34.5 gm/dL (32.0-36.5); MCV 95.4 fl (83.0-98.0); MONOCYTE # 0.9 K/uL (0.0-1.0); MONOCYTE % 8.1 %; MPV 9.9 fl (9.4-12.4); NEUTROPHIL # (ANC) 6.4 K/uL (1.8-7.8); NRBC % 0 /100WBC (0-0.00); PLATELET COUNT 335 K/uL (150-450); RBC 4.35 M/uL (3.50-5.50)
[2016-10-21 18:50] LABS: INR - (THERAPEUTIC) 0.97 (0.92-1.07); PROTIME 10.2 SECONDS (9.8-11.4); PTT 24 SECONDS (25-32)
[2016-10-21 18:56] LABS: ALBUMIN 3.9 gm/dL (3.5-5.0); ANION GAP 12.1 (10.0-19.0); CALCIUM 9.2 mg/dL (8.5-10.5); CREATININE 0.8 mg/dL (0.5-1.1); POTASSIUM 4.1 mMol/L (3.7-5.1); TOTAL PROTEIN 7.9 g/dL (6.0-8.4)
[2016-10-21 18:59] LABS: TOTAL BILIRUBIN 0.3 mg/dL (0.0-1.5)
--- NOTE | 2016-10-21 20:37 | NUR ---
Patient is 61 yo female admitted this evening for osteomyelitis of left great toe ulcer. patient states she saw Dr. Cotter this afternoon and she came straight here for admission for amputation. Patient states she has been on antibiotics for about 2 years fighting infection. states she has not been feeling well for a couple of months. has been running a fever and just not feeling well. Patient lives in [place] with her significant other/. Patient works at the [employer]. education is given as documented. patient denies questions. patient is very talkative. call light is within reach. denies questions at this time. supper is here. report is given to night RN.
[2016-10-21] MEDS ORDERED: AUGMENTIN 500-1 EACH PO (23:27)
[2016-10-22 04:43] LABS: BILIRUBIN URINE NEGATIVE (NEGATIVE); BLOOD URINE NEGATIVE /UL (NEGATIVE); COLOR URINE YELLOW (YELLOW); GLUCOSE URINE 1000 mg/dL (NEGATIVE); KETONE URINE NEGATIVE (NEGATIVE); LEUKOCYTES URINE 25 /UL (NEGATIVE); NITRITE URINE NEGATIVE (NEGATIVE); PH URINE 6.5 (4.0-8.0); PROTEIN URINE NEGATIVE (NEGATIVE); TURBIDITY URINE CLEAR (CLEAR); UROBILINOGEN URINE NORMAL (NORMAL)
[2016-10-22 04:53] LABS: BACTERIA URINE NEGATIVE (NEGATIVE); EPITHELIAL URINE 0-2 #/HPF (NEGATIVE); RBC URINE NEGATIVE #/HPF (NEGATIVE)
--- NOTE | 2016-10-22 05:36 | NUR ---
VSS. ACCUCHECK AT 0700. UA COLLECTED THIS AM. INSULIN DOSAGE DECREASED BY DR. VAZQUEZ, HOSPITALIST. EKG AND CHEST X RAY THIS AM.
--- NOTE | 2016-10-22 14:19 | NUR ---
Met with patient at bedside today. Introduced myself and explained my role with the CM department. Patient is to have surgery tomorrow of toe amputation. She states that she needs to get back to work as soon as possible because she does not have that many sick days to use. She is concerned about being able to ambulate following surgery. She is concerned because she states she has had terrible hip pain for a number of years and this also prevents her from being able to ambulate. She would like to get a motorized scooter. I explained to her that I am not certain her insurace will cover the cost of the scooter, but she states that it will. I did leave a note on the chart asking Dr. Montelongo to fill out a script for the scooter if he agrees it is necessary. She states that her will be at home to help care for her through the weekend and after that she will be going to her mom's in [place]. She denies any other needs or concerns at this time. Will continue to follow and offer supports.
[2016-10-22] MEDS ORDERED: PROBENECID PO (16:08)
[2016-10-22] MEDS ORDERED: GLUCOPHAGE500 MG PO (16:09)
--- NOTE | 2016-10-22 18:46 | NUR ---
HOSPITALIST HAD REQUESTED THAT RAG BALER BE CALLED TO ENSURE THAT PT IS CLEARED FOR SURGERY. DR Jones WAS CALLED AND HE STATES THAT THE REPORT IS DONE.
--- NOTE | 2016-10-23 04:39 | NUR ---
VSS, pt alert and oriented x3. rates pain at a 5 in her left foot. states it is tolerable. achs accu checks. on moderate sliding scale. plan is for surgery to amputate left big toe today at 1630. pt is aware.
--- NOTE | 2016-10-23 10:53 | NUR ---
Met with patient per her request. Patient had questions on how she will be able to ambulate her stairs to get into her trailer. I told her that may depend on her weight bearing status which she says will be non-weight bearing. I explained to her that therapies will assess her and determine her needs. They will work with her on stairs as long as she tells them she has stairs to get into her home. I also provided her with the name, address and phone number for [employer] here in [place]. I have been told that they do have wheelchair ramps to rent and I suggested she contact them to see if they have any available. At this time we do not know if she will be in a wheelchair or using a walker or crutches. Will notify therapy to help her with stairs when appropriate with her recovery.
--- NOTE | 2016-10-24 05:11 | NUR ---
Pt from PACU at 1800. Pt diabetic. Ancef q8h. NWB to left lower ext. Dressing C/D/I. Pt had pain issues this morning. Pain is in upper calf. New order for 0.5mg IV dilaudid as needed. Pt on RA. One assist GBW. Pt states she doesn't want a wheeled walker. Platform shoe. VSS.
[2016-10-24 06:23] LABS: BASOPHIL % 0.3 %; EOSINOPHIL # 0.1 K/uL (0.0-0.5); EOSINOPHIL % 1.1 %; HEMATOCRIT 37.9 % (33.0-46.0); HEMOGLOBIN 12.8 g/dL (10.0-15.0); IMMATURE GRANULOCYTE % 0.4 %; MCH 32.7 pg (27.0-34.0); MCHC 33.8 gm/dL (32.0-36.5); MCV 96.9 fl (83.0-98.0); MONOCYTE # 0.9 K/uL (0.0-1.0); MONOCYTE % 8.4 %; MPV 9.9 fl (9.4-12.4); NEUTROPHIL # (ANC) 6.7 K/uL (1.8-7.8); NEUTROPHIL % 61.8 %; NRBC % 0 /100WBC (0-0.00); RBC 3.91 M/uL (3.50-5.50); RDW-CV 13.1 % (11.9-14.6); WBC 10.8 K/uL (4.0-11.0)
[2016-10-24 06:25] LABS: PLATELET COUNT 261 K/uL (150-450)
[2016-10-24 06:40] LABS: CPK 241 IU/L (21-215)
--- NOTE | 2016-10-24 14:36 | NUR ---
1215 Phone call from Ziyad Sanches APRN following with patient stating patient is determined to leave the hospital today even if that means she leaves AMA. Patient needs to go home on IV antibiotics for 6 weeks. She is to get a PICC line placed this afternoon. Ziyad needs me to arrange for the IV antibiotic to get her before she discharges. I contacted Janelle at [facility] and provided her with patient's demographics and the order for the medication. Janelle called me back at 1330 stating patient has met all of her $800 deductible. She has met $1268 of her $2700 out of pocket maximum. Once she reaches the full $2700 her medication and supplies will be covered at 100%. She will have met her out of pocket maximum with this hospital stay. I explained to patient that she will have approximately $1500 out of pocket yet to pay between this hospitalization and the home infusion. Her daily cost of supplies for home infusion would be less than $30/day and the medication will be less than $2/day until she reaches the out of pocket max. Patient verbalizes her understanding and states to proceed with getting the medication here. I called Janelle with [facility] back and told her to proceed with getting the medication to us. She was also contacting home health agencies to see who is available to meet with patient to do the medication administration teaching and PICC Line care. The issues we are facing is that patient is demanding to leave today so we need to see if we can find a home health agency willing to come to her home at 2100 today or 0500 tomorrow for the first adminitration of the medication at home. Patient is on a 0500, 1300, 2100 hour regimen. I am waiting her hear back from Janelle with [facility] on whether or not she has found a home health agency. Face to face is on the chart.
--- NOTE | 2016-10-24 18:03 | NUR ---
Significant Event: Ambulates with one assist and standard walker. Maintains NWB to L) foot. Dressing to L) foot C/D/I. Able to wiggle toes. Dilaudid 0.5mg IVP last at 1747. [place] 10/ last at 1433. PICC line placed to R) upper arm this afternoon, some oozing noted under dressing. Follow up:
--- NOTE | 2016-10-25 04:09 | NUR ---
Significant Event: Alert/oriented x3. Plans to go home this morning. Acckevin BRANDON, hS, was 207 at HS - 2 U Novolog and 35 U Levemir given. Soma at 2022. NWB to left lower extremity. 1 assist ambulation. VSS on room air. Platform shoe. Wiggles toes, warm. Dressing C/D/I. Slept most of night. Saline locks in left posterior forearm and PICC in right upper arm, has little bloody drainage, will need dressing changed before dismissal. Refused right foot pump. Follow up:
--- NOTE | 2016-10-25 05:01 | NUR ---
Pt preferred sleeping in recliner. Ancef given at 0458. Pain 6/10 at 0500, no request for pain med.
--- NOTE | 2016-10-25 05:23 | NUR ---
1 Decker and Dilaudid 0.5 mg IVP at 0515 for pain 5/10.
[2016-10-25] MEDS ORDERED: ANCEF, KEFZOL1 GM IV (11:26)
[2016-10-25] MEDS ORDERED: COLACE100 MG PO (11:28)
[2016-10-25] MEDS ORDERED: MIRALAX17 GM PO (11:29)
[2016-10-25] MEDS ORDERED: SOMA350 MG PO (11:31)
[2016-10-25] MEDS ORDERED: NORCO 10-325 T1 EACH PO (11:34)
--- NOTE | 2016-10-25 17:30 | NUR ---
Phone call placed to the floor at 0745 to see if patient stayed for the night. She did stay and has had her 0500 dose of medication. She now wants to stay until after her 1300 dose because her ride cannot come until after 1400. I explained to her that she cannot stay because her home infusion and home health care will be there at 1300 so she needs to discharge to home. I provided her with a taxi voucher to get home. I faxed her discharge orders to [facility] and to [facility]. No other discharge needs.
[2016-12-10] MEDS ORDERED: KEFLEX500 MG PO (10:05)
== END 2016-10-25 12:15 | disposition disaster alternative care site (69) | DRG 617 ==
LOC: GOBS 17:03 → G3N 17:03
PROVIDERS: Internal Medicine; ADMIT Orthopaedic Surgery Adult Reconstructive Orthopaedic Surgery
PROC: 0L8P0ZZ Division of Left Lower Leg Tendon, Open Approach (ICD-10-PCS; principal; 2016-10-23)
PROC: 0Y6N0Z9 Detachment at Left Foot, Partial 1st Ray, Open Approach (ICD-10-PCS; principal; 2016-10-23)
DX: E11.621 Type 2 diabetes mellitus with foot ulcer (principal); M86.9 Osteomyelitis, unspecified; I10 Essential (primary) hypertension; F32.9 Major depressive disorder, single episode, unspecified; I25.10 Atherosclerotic heart disease of native coronary artery without angina pectoris; Z95.5 Presence of coronary angioplasty implant and graft; Z87.891 Personal history of nicotine dependence; Z79.4 Long term (current) use of insulin; F41.9 Anxiety disorder, unspecified; E11.42 Type 2 diabetes mellitus with diabetic polyneuropathy; E78.5 Hyperlipidemia, unspecified; E11.69 Type 2 diabetes mellitus with other specified complication; Z88.8 Allergy status to other drugs, medicaments and biological substances
CPT/HCPCS: C1751; J0690; J1170; J1644; J2001; J2270; J3010; J7030

== ENCOUNTER → 2016-10-28 | Outpatient (CLI) | payer OTHER ==
[~2016-10-28] MED LIST changes: +ANCEF, KEFZOL1 GM IV; +AUGMENTIN 500-1 EACH PO; +COLACE100 MG PO; +GLUCOPHAGE500 MG PO; +MIRALAX17 GM PO; +PROBENECID PO; +SOMA350 MG PO
[2016-10-28 17:36] LABS: BASOPHIL % 0.5 %; EOSINOPHIL # 0.3 K/uL (0.0-0.5); EOSINOPHIL % 3.2 %; HEMATOCRIT 35.2 % (33.0-46.0); HEMOGLOBIN 11.9 g/dL (10.0-15.0); IMMATURE GRANULOCYTE % 0.5 %; LYMPHOCYTE # 2.8 K/uL (0.8-4.0); LYMPHOCYTE % 31.3 %; MCH 32.6 pg (27.0-34.0); MCHC 33.8 gm/dL (32.0-36.5); MCV 96.4 fl (83.0-98.0); MONOCYTE # 0.8 K/uL (0.0-1.0); MPV 10.5 fl (9.4-12.4); NEUTROPHIL # (ANC) 4.9 K/uL (1.8-7.8); NEUTROPHIL % 55.5 %; NRBC % 0 /100WBC (0-0.00); PLATELET COUNT 315 K/uL (150-450); RBC 3.65 M/uL (3.50-5.50); RDW-CV 13.5 % (11.9-14.6); WBC 8.9 K/uL (4.0-11.0)
[2016-10-28 18:01] LABS: ALBUMIN 3.3 gm/dL (3.5-5.0); ANION GAP 12.3 (10.0-19.0); CALCIUM 8.7 mg/dL (8.5-10.5); CREATININE 0.8 mg/dL (0.5-1.1); POTASSIUM 4.3 mMol/L (3.7-5.1); TOTAL BILIRUBIN 0.3 mg/dL (0.0-1.5); TOTAL PROTEIN 7.2 g/dL (6.0-8.4)
== END | disposition disaster alternative care site (69) ==
LOC: LHHCN 17:30
PROVIDERS: Family Medicine
DX: Z47.81 Encounter for orthopedic aftercare following surgical amputation (principal); E11.621 Type 2 diabetes mellitus with foot ulcer